=== PATIENT | female | born 2000 | race Caucasian/White ===

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

== ENCOUNTER 2023-07-11 17:45 | Emergency (ER) | payer MEDICAID ==
[~2023-07-11] VITALS: Ht 172.7 cm; Wt 99.0 kg
[2023-07-11 17:49] VITALS: O2SAT 99
[2023-07-11] MEDS ORDERED: NYST15PO4 TP (18:44)
[2023-07-11] MEDS ORDERED: CEPH500C2 MT (18:44)
[2023-07-11] MEDS ORDERED: SULF1TAB48 MT (18:44)
[2023-07-11 19:21] VITALS: BP 171/110; PULSE 103; RESP 20; TEMP 98.1
== END 2023-07-11 19:23 | disposition home or self-care (01) ==
LOC: ER 17:45
DX: N61.0 Mastitis without abscess (principal)
CPT/HCPCS: 81025; 99282; 99283

== ENCOUNTER 2023-07-17 10:33 | Emergency (ER) | payer MEDICAID ==
[~2023-07-17] VITALS: Ht 170.2 cm; Wt 113.4 kg
[~2023-07-17 10:33] MED LIST: CEPH500C2 MT; NYST15PO4 TP; SULF1TAB48 MT
[2023-07-17 10:45] VITALS: O2SAT 100
[2023-07-17] MEDS ORDERED: CLIN-194 MT (11:46)
[2023-07-17] MEDS ORDERED: CLOT15CR27 TP (11:46)
[2023-07-17 12:21] VITALS: BP 147/87; PULSE 94; RESP 18; TEMP 98.5
[2023-07-17] MEDS: DEXAMETHASONE 4MG TABLET PO ONE (12:21)
== END 2023-07-17 12:28 | disposition home or self-care (01) ==
LOC: ER 10:33
DX: B49 Unspecified mycosis (principal); E11.9 Type 2 diabetes mellitus without complications
CPT/HCPCS: 99283; 81025; J8540